=== PATIENT | male | born 1995 | race Caucasian/White ===

== ENCOUNTER 2018-06-03 08:21 | Emergency (ER) | payer OTHER ==
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
[2018-06-03] MEDS ORDERED: NS(*) 0.9% 1000 ML BAG 1,000 ML IV ONE (08:36)
[2018-06-03] MEDS ORDERED: fentaNYL CITR 100 MCG/2 ML AMP IVP ONE ×2 (08:40→10:50)
[2018-06-03] MEDS ORDERED: DIPHTH/TETANUS/ACEL. PERTUSSIS IM ONE (08:40)
[2018-06-03] MEDS ORDERED: IOPAMIDOL 76% 75 ML INFUS BTL 75 ML ONE (08:48)
[2018-06-03 09:51] LABS: PLATELET COUNT, AUTOMATED 193 K/uL (150-450)
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
[2018-06-03] MEDS ORDERED: OXYC-865 PO (11:25)
[2018-06-03 12:00] VITALS: BP 145/75
[2018-06-03] MEDS ORDERED: IBUPROFEN 800 MG TAB PO ONE (13:15)
--- NOTE | 2018-06-03 13:18 | RADIOLOGY IMAGING REPORT ---
FACILITY: [facility] [place] PATIENT NAME: Escobar Quispe : 1995 MR: [id number] V: [id number] EXAM DATE: ORDERING PHYSICIAN: DANIA BUCIO TECHNOLOGIST: Location: [facility] Patient: Escobar Quispe : 1995 Visit/Account:[id number] Date of Sevice: 06/03/2018 Exam type: THORACOLUMBAR JUNCTION History: T10 compression fracture, post TLSO placement Comparison: CT chest seven pelvis performed today. Findings: Immobilizing device projects over the thoracal lumbar spine images on the AP view. There is mild los s of height at the T10 vertebral body consistent with the CT findings of a mild compression fracture. No subluxation is identified. IMPRESSION: 1. Mild compression fracture of T10 without evidence of subluxation Report Dictated By: Vera Ruth MD at 06/03/2018 1:11 PM Report E-Signed By: Vera Ruth MD at 06/03/2018 1:13 PM YOLETTEN:CITLALI
== END 2018-06-03 13:26 | disposition home or self-care (01) ==
LOC: ER 08:57
DX: S22.079A Unspecified fracture of T9-T10 vertebra, initial encounter for closed fracture (principal); S01.112A Laceration without foreign body of left eyelid and periocular area, initial encounter; V48.3XXA Unspecified car occupant injured in noncollision transport accident in nontraffic accident, initial encounter
CPT/HCPCS: 36415; 70450; 71260; 72080; 72125; 74177; 80320; 81001; 83605; 83690; 85025; 85610; 85730; 90471; 90715; 96361; 96374; 96375; 99285; J3010; J7030; Q9967; 82040; 82247; 82310; 82374; 82435; 82565; 82947; 84075; 84132; 84155; 84295; 84450; 84460; 84520

== ENCOUNTER → 2018-06-03 | Outpatient (CLI) | payer OTHER ==
[~2018-06-03] MED LIST: OXYC-865 PO
== END ==
LOC: AMB 07:19
PROVIDERS: ATTEND Nurse Practitioner
DX: M54.5 Low back pain (principal); S01.112A Laceration without foreign body of left eyelid and periocular area, initial encounter; V48.0XXA Car driver injured in noncollision transport accident in nontraffic accident, initial encounter
CPT/HCPCS: A0425; A0433

== ENCOUNTER 2018-07-01 08:16 | Emergency (ER) | payer OTHER ==
--- NOTE | 2018-07-01 08:19 | ER Report ---
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 No other injuries were noted. Last tetanus shot was one month ago. Patient reports severe pain secondary to injury. Allergies: Coded Allergies: No Known Drug Allergies (Unverified , 07/01/18) Home Meds Active Scripts Oxycodone Hcl/Acetaminophen (PERCOCET 5-325 MG TABLET) 1 Each Tablet, 1 EACH PO Q4H for PAIN, #30 TAB 0 Refills Prov:NICOLAS LIZ MD 07/01/18 Cephalexin (KEFLEX) 500 Mg Capsule, 500 MG PO Q6H, #28 CAP 0 Refills TAKE ONE CAPSULE BY MOUTH EVERY SIX HOURS Prov:NICOLAS LIZ MD 07/01/18 Oxycodone Hcl/Acetaminophen (PERCOCET 5-325 MG TABLET) 1 Each Tablet, 1 EACH PO Q4H PRN for PAIN, #20 TAB 0 Refills Prov:DANIA BUCIO DO 06/03/18 Past Medical/Surgical History Noncontributory towards this chief complaint Hx Substance Use Disorder: No Hx Alcohol Use: Yes Constitutional Vital Sign - Last 24 Hours 07/01/18 07/01/18 08:20 09:16 Temp 97.6 Pulse 60 89 Resp 22 B/P (MAP) 137/114 141/107 (118) Pulse Ox 98 95 O2 Delivery Room Air Room Air Physical Exam General appearance: alert no distress Left hand: There is no significant swelling. Patient has a crush injury to the distal tip of the 3rd finger of the left hand. Skin: Avulsion to the tip of the 3rd finger of the left hand. Examination of the Left hand reveals no acute deformity. The patient is able to give a thumbs up sign, is able to make an okay sign, and is able to AB duct the fingers. Sensation is intact over the dorsal 1st web space, the volar aspect of the 2nd finger, and the volar aspect of the 5th finger. Capillary refill is brisk. Medical Decision Making ED Course/Re-evaluation ED Course 07/01/2018 8:30:51 am due to block of the 3rd finger of the left hand was performed for analgesia. This achieved good effect. Plan at this time will be x- ray of the finger. Re-evaluation 07/01/2018 9:06:[address] Sivla from [facility]. History physical exam imaging studies were discussed. Patient essentially has exposed bone to the distal tip of his left 3rd finger. Suspect this will require bone shaving and a flap. He requests that we place the patient on antibiotics. And he will see the patient in clinic on . Decision to Disposition Date: Jul 01, 2018 Decision to Disposition Time: 09:21 Depart Departure Latest Vital Signs Vital Signs Date Time Temp Pulse Resp B/P (MAP) Pulse Ox O2 Delivery O2 Flow Rate FiO2 07/01/18 09:16 89 141/107 (118) 95 Room Air 07/01/18 08:20 97.6 22 Impression: Primary Impression: Fingertip avulsion Condition: Improved Disposition: HOME OR SELF-CARE Referrals: CARLOS SILVA MD New Scripts Oxycodone Hcl/Acetaminophen (PERCOCET 5-325 MG TABLET) 1 Each Tablet 1 EACH PO Q4H for PAIN, #30 TAB 0 Refills Prov: NICOLAS LIZ MD 07/01/18 Cephalexin (KEFLEX) 500 Mg Capsule 500 MG PO Q6H, #28 CAP 0 Refills TAKE ONE CAPSULE BY MOUTH EVERY SIX HOURS Prov: NICOLAS LIZ MD 07/01/18 Patient Instructions: Finger Amputation (ED) Additional Instructions: Call [facility] today to let them know you were seen in the emergency department for a finger avulsion and were told to make a follow-up appointment with Dr. Silva this in clinic. Problem Qualifiers Primary Impression: Fingertip avulsion Encounter type: initial encounter Qualified Codes: S61.209A - Unspecified open wound of unspecified finger without damage to nail, initial encounter NICOLAS LIZ MD Jul 01, 2018 08:18
[2018-07-01] MEDS ORDERED: OXYC-865 PO (09:09)
[2018-07-01] MEDS ORDERED: CEPH-13 PO (09:09)
--- NOTE | 2018-07-01 09:12 | RADIOLOGY IMAGING REPORT ---
FACILITY: [facility] [place]IENT NAME: Escobar Quispe : 1995 MR: [id number] V: [id number] EXAM DATE: ORDERING PHYSICIAN: NICOLAS LIZ TECHNOLOGIST: Location: [facility] Patient: Escobar Quispe : 1995 Visit/Account:[id number] Date of Sevice: 07/01/2018 Technique: FINGER LEFT 3RD DIGIT HISTORY: crush injury Comparison studies: None FINDINGS: Laceration changes overlie the distal left third digit. There is an acute fracture involvin g the tuft of the distal left third phalanx. Small adjacent fracture fragments are noted ventrally. IMPRESSION: 1. Laceration and fracture involving the tuft of the distal left third phalanx. Report Dictated By: Jaspal Davies DO at 07/01/2018 9:06 AM Report E-Signed By: Jaspal Davies DO at 07/01/2018 9:07 AM WSN:[id number]
[2018-07-01 09:16] VITALS: BP 141/107
[2018-07-01] MEDS ORDERED: CEPHALEXIN MONO 500 MG CAP PO ONE (09:25)
== END 2018-07-01 09:28 | disposition home or self-care (01) ==
LOC: ER 08:27
DX: S61.203A Unspecified open wound of left middle finger without damage to nail, initial encounter (principal)
CPT/HCPCS: 99283